=== PATIENT | female | born 1980 | race Caucasian/White ===

== ENCOUNTER 2024-03-04 12:41 | Emergency (ER) | payer MEDICAID ==
--- NOTE | 2024-03-04 12:48 | ERPHSYRPT ---
- History of Present Illness Time Seen by Provider: 03/04/24 12:48 Source: patient Exam Limitations: no limitations Physician History: This is a 43-year-old white female patient who presents to the emergency department with multiple vague complaints that began approximately 3 days ago. The complaints include headache, fatigue, malaise, body aches and has no energy and wants to sleep all day long. Patient does have a history of hypothyroidism. Patient denies chest pain. Patient denies shortness of breath. Patient denies abdominal pain. She has had no nausea vomiting or diarrhea symptoms. Patient is under a lot of stress at this time. Patient thinks her hormone levels are out of control. Patient states that she is, at times, very emotional. Patient is refusing intravenous line placement but will allow us to draw blood. Timing/Duration: day(s) (3) Quality: fullness Head Pain Location: global Severity of Pain-Max: mild Severity of Pain-Current: mild Associated Symptoms: weakness, No confusion, No dizziness, No fever/chills, No loss of consciousness, No nausea/vomiting, No neck pain, No numbness in legs/feet, No sinus infection, No stiff neck, No trouble walking, No vision changes Previous symptoms: no prior history, no recent treatment Allergies/Adverse Reactions: quetiapine [From Seroquel] Allergy (Verified 03/04/24 13:01) Home Medications: Dapagliflozin Propanediol [Farxiga] 1 ea DAILY 03/04/24 [History] Levothyroxine Sodium [Synthroid] 25 mcg PO DAILY 03/04/24 [History] Sacubitril/Valsartan [Entresto 24 mg-26 mg Tablet] 1 ea DAILY 03/04/24 [History] Travel Risk - International Travel Have you traveled outside of the country in past 3 weeks: No - Emerging Infectious Disease Are you exhibiting symptoms associated with any current EIDs: Yes Symptoms: Headaches/Body Aches/ - Review of Systems Constitutional: Malaise, Weakness Eyes: No Symptoms Ears, Nose, & Throat: No Symptoms Respiratory: No Symptoms Cardiac: No Symptoms Abdominal/Gastrointestinal: No Symptoms Genitourinary Symptoms: No Symptoms Musculoskeletal: No Symptoms Skin: No Symptoms Neurological: Headache Psychological: Emotional Lability Endocrine: No Symptoms Hematologic/Lymphatic: No Symptoms Immunological/Allergic: No Symptoms All Other Systems: Reviewed and Negative - Past Medical History Pertinent Past Medical History: Yes - Past Surgical History Past Surgical History: Yes - Nursing Vital Signs Nursing Vital Signs: Initial Vital Signs Blood Pressure 113/72 03/04/24 13:00 Pain Scale Pain Intensity 4 - Physical Exam General Appearance: no apparent distress, alert, anxiety Eye Exam: PERRL/EOMI, eyes nml inspection Ears, Nose, Throat Exam: normal ENT inspection, moist mucous membranes Neck Exam: normal inspection, non-tender, supple, full range of motion Respiratory Exam: normal breath sounds, lungs clear, airway intact, No chest tenderness, No respiratory distress Cardiovascular Exam: regular rate/rhythm, normal heart sounds, normal peripheral pulses Gastrointestinal/Abdominal Exam: soft, normal bowel sounds, No tenderness Back Exam: normal inspection, normal range of motion, No CVA tenderness, No vertebral tenderness Extremity Exam: normal inspection, normal range of motion, pelvis stable Mental Status 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: 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, 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, 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: normal hearing, normal speech, PERRL Coordination/Gait Exam: normal finger to nose, normal gait, normal cerebellar function Motor/Sensory Exam: no motor deficit, no sensory deficit Skin Exam: normal color, warm, dry Lymphatic Exam: No adenopathy SpO2 Interpretation: normal O2 Delivery: Room Air - Course Nursing assessment & vital signs reviewed: Yes EKG Interpreted by Me: RATE (53), Sinus Rhythm, NORMAL AXIS, NORMAL INTERVALS, NORMAL QRS, Other (No acute ischemia on today's twelve-lead EKG.) Ordered Tests: Active Orders 24 hr Category Date Time Status Portfolio Lead STAT Care 03/04/24 13:56 Active EKG-ER Only STAT Care 03/04/24 13:54 Active IV Insertion STAT Care 03/04/24 13:54 Active Pulse Oximetry (ED) STAT Care 03/04/24 13:54 Active BLOOD CULTURE Stat Lab 03/04/24 14:17 Received CBC W DIFF Stat Lab 03/04/24 13:54 Completed CMP Stat Lab 03/04/24 14:05 Completed HCG QUALITATIVE, SERUM Stat Lab 03/04/24 14:05 Completed MONO SCREEN Stat Lab 03/04/24 14:05 Completed TROPONIN Q4H Lab 03/04/24 14:05 Completed TROPONIN Q4H Lab 03/04/24 18:00 Ordered TROPONIN Q4H Lab 03/04/24 22:00 Ordered TSH [TSH, 3RD Generation] Stat Lab 03/04/24 14:45 Completed UA W/RFX UR CULTURE Stat Lab 03/04/24 14:04 Completed Medication Summary Discontinued Medications Generic Name Dose Route Start Last Admin Trade Name Luis PRN Reason Stop Dose Admin Sodium Chloride 1,000 mls @ 999 mls/hr 03/04/24 13:54 03/04/24 14:15 Sodium Chloride 0.9% 1000 Ml IV 03/04/24 14:54 Not Given .Q1H1M STA Ondansetron HCl 4 mg 03/04/24 13:54 03/04/24 14:16 Ondansetron Hcl 4 Mg/2 Ml Vial IV 03/04/24 13:55 Not Given STAT STA Lab/Rad Data: Laboratory Result Diagrams 03/04/24 13:54 03/04/24 14:05 Laboratory Results 03/04/24 03/04/24 03/04/24 Range/Units 14:45 14:45 14:05 WBC (3.98-10.04) x10^3/uL RBC (3.93-5.22) x10^6/uL Hgb (11.2-15.7) g/dL Hct (34.1-44.9) % MCV (79.4-94.8) fL MCH (25.6-32.2) pg MCHC (32.2-35.5) g/dL RDW (11.7-14.4) % Plt Count (182-369) x10^3/uL MPV (9.4-12.3) fL Gran % (34.0-71.1) % Immature Gran % (Auto) (0.001-0.429) % Nucleat RBC Rel Count (0.00-0.2) % Eos # (Auto) (0.04-0.36) x10^3/uL Immature Gran # (Auto) (0.001-0.031) x10^3u/L Absolute Lymphs (auto) (1.18-3.74) x10^3/uL Absolute Monos (auto) (0.24-0.86) x10^3/uL Absolute Nucleated RBC (0.00-0.012) x10^3u/L Lymphocytes % (19.3-51.7) % Monocytes % (4.7-12.5) % Eosinophils % (0.7-5.8) % Basophils % (0.1-1.2) % Absolute Granulocytes (1.56-6.13) x10^3/uL Basophils # (0.01-0.08) x10^3/uL Sodium (135-145) mmol/L Potassium (3.5-5.1) mmol/L Chloride (98-107) mmol/L Carbon Dioxide (22-30) mmol/L Anion Gap (5-15) MEQ/L BUN (7-17) mg/dL Creatinine (0.52-1.04) mg/dL Estimated GFR ML/MIN Glucose (74-106) mg/dL Calcium (8.4-10.2) mg/dL Total Bilirubin (0.2-1.3) mg/dL AST (14-36) U/L ALT (0-35) U/L Alkaline Phosphatase (38-126) U/L Troponin I (0.000-0.033) ng/mL Serum Total Protein (6.3-8.2) g/dL Albumin (3.5-5.0) g/dL Free T4 0.95 (0.78-2.19) ng/dL TSH 3rd Generation 0.706 (0.470-4.680) mIU/L Serum HCG, Qual NEGATIVE (NEGATIVE) Urine Color (Yellow) Urine Appearance (Clear) Urine pH (4.6-8.0) Ur Specific [place] (1.005-1.030) Urine Protein (Negative) Urine Glucose (UA) (Negative) mg/dL Urine Ketones (Negative) Urine Blood (Negative) Urine Nitrite (Negative) Urine Bilirubin (Negative) Urine Urobilinogen (0.2) mg/dL Ur Leukocyte Esterase (Negative) U Hyaline Cast (Auto) (0-2) /LPF Urine Microscopic RBC (0-5) /HPF Urine Microscopic WBC (0-5) /HPF Ur Epithelial Cells (None Seen) /HPF Urine Bacteria (None Seen) /HPF Urine Culture Reflexed (NO) Monoscreen (NEGATIVE) Influenza Type A Ag (NEGATIVE) Influenza Type B Ag (NEGATIVE) RSV (PCR) (NEGATIVE) SARS-CoV-2 (PCR) (NEGATIVE) 03/04/24 03/04/24 03/04/24 Range/Units 14:05 14:05 14:05 WBC (3.98-10.04) x10^3/uL RBC (3.93-5.22) x10^6/uL Hgb (11.2-15.7) g/dL Hct (34.1-44.9) % MCV (79.4-94.8) fL MCH (25.6-32.2) pg MCHC (32.2-35.5) g/dL RDW (11.7-14.4) % Plt Count (182-369) x10^3/uL MPV (9.4-12.3) fL Gran % (34.0-71.1) % Immature Gran % (Auto) (0.001-0.429) % Nucleat RBC Rel Count (0.00-0.2) % Eos # (Auto) (0.04-0.36) x10^3/uL Immature Gran # (Auto) (0.001-0.031) x10^3u/L Absolute Lymphs (auto) (1.18-3.74) x10^3/uL Absolute Monos (auto) (0.24-0.86) x10^3/uL Absolute Nucleated RBC (0.00-0.012) x10^3u/L Lymphocytes % (19.3-51.7) % Monocytes % (4.7-12.5) % Eosinophils % (0.7-5.8) % Basophils % (0.1-1.2) % Absolute Granulocytes (1.56-6.13) x10^3/uL Basophils # (0.01-0.08) x10^3/uL Sodium 138 (135-145) mmol/L Potassium 3.8 (3.5-5.1) mmol/L Chloride 108 H (98-107) mmol/L Carbon Dioxide 20 L (22-30) mmol/L Anion Gap 13.4 (5-15) MEQ/L BUN 15 (7-17) mg/dL Creatinine 0.64 (0.52-1.04) mg/dL Estimated GFR 111.7 ML/MIN Glucose 93 (74-106) mg/dL Calcium 9.3 (8.4-10.2) mg/dL Total Bilirubin 0.50 (0.2-1.3) mg/dL AST 21 (14-36) U/L ALT 15 (0-35) U/L Alkaline Phosphatase 55 (38-126) U/L Troponin I < 0.012 (0.000-0.033) ng/mL Serum Total Protein 7.6 (6.3-8.2) g/dL Albumin 4.2 (3.5-5.0) g/dL Free T4 (0.78-2.19) ng/dL TSH 3rd Generation (0.470-4.680) mIU/L Serum HCG, Qual (NEGATIVE) Urine Color (Yellow) Urine Appearance (Clear) Urine pH (4.6-8.0) Ur Specific [place] (1.005-1.030) Urine Protein (Negative) Urine Glucose (UA) (Negative) mg/dL Urine Ketones (Negative) Urine Blood (Negative) Urine Nitrite (Negative) Urine Bilirubin (Negative) Urine Urobilinogen (0.2) mg/dL Ur Leukocyte Esterase (Negative) U Hyaline Cast (Auto) (0-2) /LPF Urine Microscopic RBC (0-5) /HPF Urine Microscopic WBC (0-5) /HPF Ur Epithelial Cells (None Seen) /HPF Urine Bacteria (None Seen) /HPF Urine Culture Reflexed (NO) Monoscreen WEAKLY POSITIVE A (NEGATIVE) Influenza Type A Ag (NEGATIVE) Influenza Type B Ag (NEGATIVE) RSV (PCR) (NEGATIVE) SARS-CoV-2 (PCR) (NEGATIVE) 03/04/24 03/04/24 03/04/24 Range/Units 14:04 14:04 13:54 WBC 8.4 (3.98-10.04) x10^3/uL RBC 4.81 (3.93-5.22) x10^6/uL Hgb 12.7 (11.2-15.7) g/dL Hct 39.9 (34.1-44.9) % MCV 83.0 (79.4-94.8) fL MCH 26.4 (25.6-32.2) pg MCHC 31.8 L (32.2-35.5) g/dL RDW 14.8 H (11.7-14.4) % Plt Count 258 (182-369) x10^3/uL MPV 10.2 (9.4-12.3) fL Gran % 55.4 (34.0-71.1) % Immature Gran % (Auto) 0.2 (0.001-0.429) % Nucleat RBC Rel Count 0.0 (0.00-0.2) % Eos # (Auto) 0.24 (0.04-0.36) x10^3/uL Immature Gran # (Auto) 0.02 (0.001-0.031) x10^3u/L Absolute Lymphs (auto) 2.72 (1.18-3.74) x10^3/uL Absolute Monos (auto) 0.71 (0.24-0.86) x10^3/uL Absolute Nucleated RBC 0.00 (0.00-0.012) x10^3u/L Lymphocytes % 32.5 (19.3-51.7) % Monocytes % 8.5 (4.7-12.5) % Eosinophils % 2.9 (0.7-5.8) % Basophils % 0.5 (0.1-1.2) % Absolute Granulocytes 4.64 (1.56-6.13) x10^3/uL Basophils # 0.04 (0.01-0.08) x10^3/uL Sodium (135-145) mmol/L Potassium (3.5-5.1) mmol/L Chloride (98-107) mmol/L Carbon Dioxide (22-30) mmol/L Anion Gap (5-15) MEQ/L BUN (7-17) mg/dL Creatinine (0.52-1.04) mg/dL Estimated GFR ML/MIN Glucose (74-106) mg/dL Calcium (8.4-10.2) mg/dL Total Bilirubin (0.2-1.3) mg/dL AST (14-36) U/L ALT (0-35) U/L Alkaline Phosphatase (38-126) U/L Troponin I (0.000-0.033) ng/mL Serum Total Protein (6.3-8.2) g/dL Albumin (3.5-5.0) g/dL Free T4 (0.78-2.19) ng/dL TSH 3rd Generation (0.470-4.680) mIU/L Serum HCG, Qual (NEGATIVE) Urine Color Yellow (Yellow) Urine Appearance Clear (Clear) Urine pH 5.5 (4.6-8.0) Ur Specific [place] >=1.030 A (1.005-1.030) Urine Protein Negative (Negative) Urine Glucose (UA) >=1000 A (Negative) mg/dL Urine Ketones Negative (Negative) Urine Blood Negative (Negative) Urine Nitrite Negative (Negative) Urine Bilirubin Negative (Negative) Urine Urobilinogen 0.2 (0.2) mg/dL Ur Leukocyte Esterase Negative (Negative) U Hyaline Cast (Auto) NONE SEEN (0-2) /LPF Urine Microscopic RBC 0-2 (0-5) /HPF Urine Microscopic WBC 3-5 (0-5) /HPF Ur Epithelial Cells Few (None Seen) /HPF Urine Bacteria None Seen (None Seen) /HPF Urine Culture Reflexed NO (NO) Monoscreen (NEGATIVE) Influenza Type A Ag NEGATIVE (NEGATIVE) Influenza Type B Ag NEGATIVE (NEGATIVE) RSV (PCR) NEGATIVE (NEGATIVE) SARS-CoV-2 (PCR) NEGATIVE (NEGATIVE) - Progress Progress: improved, re-examined Air Movement: good Progress Note: 03/04/24 14:41 My medical decision making and the assignment of moderate complexity to this patient's medical issue today is based on review of the patient's past medical history, review of the patient's medication list, review patient drug allergy list, history present illness and physical findings on examination. The workup in this patient included placement of intravenous line (patient refused) CBC, CMP, twelve-lead EKG, troponin level, urinalysis, viral swabs, monotest, free T4 and TSH levels. Differential diagnosis includes but is not limited to dehydration, urinary tract infection, viral illness, abnormal thyroid function test levels, anemia, arrhythmia 03/04/24 16:07 I interpreted the patient's laboratory data results. The patient has tested positive for mononucleosis. Patient also has glucosuria. The patient refused an intravenous line and therefore we could not provide her with any normal saline solution which was the plan initially. Counseled pt/family regarding: lab results, diagnosis, need for follow-up Medical Desision Making - Diagnostic Testing Diagnostic test were ordered, analyzed, and reviewed by me: Yes - Risk of complications Low Risk: Low risk of morbidity from additional dx testing or treatment - Departure Departure Disposition: Home Clinical Impression: Mononucleosis, Glucosuria Condition: Stable Critical Care Time: No Referrals: DOCTOR,NO FAMILY [Primary Care Provider] - Follow up/PCP as directed Additional Instructions: Drink plenty of clear liquids before advancing your diet. Avoid fatty greasy spicy foods. Call your primary care provider tomorrow, 03/05/2024, to make arranges for follow-up appointment for further evaluation management. If there are no contraindications, use Tylenol and ibuprofen for pain and fever control.
[2024-03-04 13:07] VITALS: RESP 18; TEMP 97.2
[2024-03-04 14:05] VITALS: O2SAT 98
[2024-03-04] MEDS: Sodium Chloride 0.9% 1000 ML 1,000 ML IV STA (14:15)
[2024-03-04] MEDS: Zofran 4 MG/2 ML VIAL IV STA (14:16)
[2024-03-04 14:20] LABS: Appearance Clear (Clear); Bacteria None Seen /HPF (None Seen); Bilirubin Negative (Negative); Blood Negative (Negative); Epithelial Cells Few /HPF (None Seen); Glucose, Urine >=1000 mg/dL (Negative); Hyaline Casts NONE SEEN /LPF (0-2); Ketones Negative (Negative); Leukocyte Esterase Negative (Negative); Nitrite Negative (Negative); Ph 5.5 (4.6-8.0); Protein,Urine Dip Negative (Negative); RBC 0-2 /HPF (0-5); Specific Gravity >=1.030 (1.005-1.030); Urobilinogen 0.2 mg/dL (0.2)
[2024-03-04 14:22] LABS: Absolute Neutrophil Ct (ANC) 4.64 x10^3/uL (1.56-6.13); BASOPHIL % 0.5 % (0.1-1.2); Basophil (Absolute #) 0.04 x10^3/uL (0.01-0.08); Eosinophil % 2.9 % (0.7-5.8); Eosinophil (Absolute #) 0.24 x10^3/uL (0.04-0.36); Hematocrit 39.9 % (34.1-44.9); Hemoglobin 12.7 g/dL (11.2-15.7); IMMATURE GRAN # 0.02 x10^3u/L (0.001-0.031); IMMATURE GRAN % 0.2 % (0.001-0.429); Lymphocyte (Absolute #) 2.72 x10^3/uL (1.18-3.74); Lymphocytes % 32.5 % (19.3-51.7); Mean Corpuscular Hemoglobin 26.4 pg (25.6-32.2); Mean Corpuscular Hgb Concent. 31.8 g/dL (32.2-35.5); Mean Platelet Volume 10.2 fL (9.4-12.3); Monocyte (Absolute #) 0.71 x10^3/uL (0.24-0.86); Monocytes % 8.5 % (4.7-12.5); Neutrophil % 55.4 % (34.0-71.1); Platelet Count 258 x10^3/uL (182-369); Red Blood Count 4.81 x10^6/uL (3.93-5.22); Red Cell Distribution Width 14.8 % (11.7-14.4); White Blood Count 8.4 x10^3/uL (3.98-10.04)
[2024-03-04 14:40] LABS: ADD URINE CULTURE? NO (NO)
[2024-03-04 14:41] LABS: HCG SERUM TEST NEGATIVE (NEGATIVE)
[2024-03-04 14:45] LABS: ALBUMIN 4.2 g/dL (3.5-5.0); ANION GAP 13.4 MEQ/L (5-15); BILIRUBIN,TOTAL 0.5 mg/dL (0.2-1.3); Calcium 9.3 mg/dL (8.4-10.2); Creatinine 1 0.64 mg/dL (0.52-1.04); EST GLOMERULAR FILTRATION RATE 111.7 ML/MIN; Potassium 3.8 mmol/L (3.5-5.1); Total Protein 7.6 g/dL (6.3-8.2)
[2024-03-04 15:01] LABS: INFLUENZA A NEGATIVE (NEGATIVE); INFLUENZA B NEGATIVE (NEGATIVE); RESPIRATORY SYNCTIAL VIRUS NEGATIVE (NEGATIVE); SARS-CoV-2 Xpert Express NEGATIVE (NEGATIVE)
[2024-03-04 16:11] VITALS: BP 86/54; PULSE 78
== END 2024-03-04 16:21 | disposition home or self-care (01) ==
LOC: ED 12:41
DX: B27.90 Infectious mononucleosis, unspecified without complication (principal); R81 Glycosuria; R51.9 Headache, unspecified; R53.83 Other fatigue; M79.10 Myalgia, unspecified site; Z79.84 Long term (current) use of oral hypoglycemic drugs; Z79.899 Other long term (current) drug therapy
CPT/HCPCS: 0241U; 36415; 80053; 81001; 84439; 84443; 84484; 84703; 85025; 86308; 87040; 93005; 93041; 94760; 99284

== ENCOUNTER 2024-09-13 20:25 | Emergency (ER) | payer MEDICAID, OTHER ==
[2024-09-13] MEDS ORDERED: GlucaGen 1 MG IM ONE (20:26)
[2024-09-13 21:02] LABS: BASOPHIL % 0.8 % (0.1-1.2); Basophil (Absolute #) 0.07 x10^3/uL (0.01-0.08); Eosinophil % 2.7 % (0.7-5.8); Eosinophil (Absolute #) 0.25 x10^3/uL (0.04-0.36); Hemoglobin 13.1 g/dL (11.2-15.7); IMMATURE GRAN # 0.02 x10^3u/L (0.001-0.031); IMMATURE GRAN % 0.2 % (0.001-0.429); Lymphocyte (Absolute #) 3.08 x10^3/uL (1.18-3.74); Lymphocytes % 33.1 % (19.3-51.7); Mean Cell Volume 79.1 fL (79.4-94.8); Mean Corpuscular Hemoglobin 25.9 pg (25.6-32.2); Mean Corpuscular Hgb Concent. 32.8 g/dL (32.2-35.5); Mean Platelet Volume 9.4 fL (9.4-12.3); Monocyte (Absolute #) 0.89 x10^3/uL (0.24-0.86); Monocytes % 9.6 % (4.7-12.5); Neutrophil % 53.6 % (34.0-71.1); Platelet Count 367 x10^3/uL (182-369); Red Blood Count 5.06 x10^6/uL (3.93-5.22); Red Cell Distribution Width 14.7 % (11.7-14.4); White Blood Count 9.3 x10^3/uL (3.98-10.04)
[2024-09-13 21:03] VITALS: TEMP 97
[2024-09-13] MEDS ORDERED: Sodium Chloride 0.9% 1000 ML 0 ML ONE (21:03)
[2024-09-13] MEDS: Sodium Chloride 0.9% 1000 ML 1,000 ML IV STA ×2 (21:04→23:03)
--- NOTE | 2024-09-13 21:14 | ERPHSYRPT ---
- History of Present Illness Time Seen by Provider: 09/13/24 20:48 Source: patient Exam Limitations: no limitations Physician History: 44-year-old female with history of substance abuse, heart failure with pacemaker implant, hypothyroidism presented in the ER after she overdosed on 3.125 mg Coreg x 100 and Entresto x 40 around 5:30 PM almost 3 hours prior to arrival. Patient reports worsening of depressive symptoms and does have history of overdose in the past as well with cardiac arrest. Denies any alcohol or substance abuse. No chest pain palpitations or shortness of breath. Denies feeling dizzy or lightheaded. Allergies/Adverse Reactions: quetiapine [From Seroquel] Allergy (Verified 09/13/24 20:45) Home Medications: Dapagliflozin Propanediol [Farxiga] 1 ea DAILY 03/04/24 [History] Levothyroxine Sodium [Synthroid] 25 mcg PO DAILY 03/04/24 [History] Sacubitril/Valsartan [Entresto 24 mg-26 mg Tablet] 1 ea DAILY 03/04/24 [History] Hx Tetanus, Diphtheria Vaccination/Date Given: No Hx Influenza Vaccination/Date Given: No Hx Pneumococcal Vaccination/Date Given: No Travel Risk - Emerging Infectious Disease Are you exhibiting symptoms associated with any current EIDs: Yes Symptoms: Headaches/Body Aches/ - Past Medical History Pertinent Past Medical History: Yes Cardiac History: Coronary Artery Disease, Hypertension, Myocardial Infarction ([place]) - Past Surgical History Past Surgical History: Yes Cardiac: Cardiac Catheterization, Internal Defibrillator, Pacemaker Gastrointestinal: Cholecystectomy Female Surgical History: Other Other Surgical History: abnormal pap smears - Female History Hx Last Menstrual Period: late Hx Now: (unkn) - Social History Smoking Status: Current every day smoker Exposure to second hand smoke: Yes Drug Use: none - Social Determinants of Health Will the patient participate in the screening: Yes Do you worry about a steady place to live?: No In the past 12 months,have you had to go without utilities?: No Transportation Issues: Yes Has anyone in your support network made you feel unsafe?: No Have you or anyone in your house had to go without enough: No Comment: lost drivers lic - Review of Systems Constitutional: Fatigue Eyes: No Symptoms Ears, Nose, & Throat: No Symptoms Respiratory: No Symptoms Cardiac: No Symptoms Abdominal/Gastrointestinal: No Symptoms Genitourinary Symptoms: No Symptoms Musculoskeletal: Arthralgias Skin: No Symptoms Neurological: No Symptoms Psychological: Anxiety, Depression, Suicidal Ideations Endocrine: No Symptoms Hematologic/Lymphatic: No Symptoms - Nursing Vital Signs Nursing Vital Signs: Initial Vital Signs Temperature 97.0 F 09/13/24 20:49 Pulse Rate 65 09/13/24 20:49 Respiratory Rate 18 09/13/24 20:49 Blood Pressure 91/59 09/13/24 20:49 O2 Sat by Pulse Oximetry 95 09/13/24 20:49 Pain Scale Pain Intensity 0 - Physical Exam General Appearance: no apparent distress, alert Eyes, Ears, Nose, Throat Exam: normal ENT inspection Neck Exam: normal inspection, supple, full range of motion Respiratory Exam: normal breath sounds, lungs clear Cardiovascular Exam: regular rate/rhythm, normal heart sounds Gastrointestinal/Abdominal Exam: soft, normal bowel sounds, No tenderness Extremities Exam: normal inspection Current Suicidality: has suicide plan Neurological Exam: alert, calm, serology teacher II-XII nml as tested, 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, No normal mood/affect Appearance: appropriate appearance, appropriate insight, neat, no memory impairment Behavior/Eye Contact/Speech: alert & cooperative, cooperative, good eye contact, normal speech Thoughts/Hallucinations: normal thought pattern, no apparent hallucination Skin Exam: normal color SpO2 Interpretation: normal SpO2: 95 O2 Delivery: Room Air - Course EKG Interpreted by Me: RATE ([id number]), Sinus Rhythm, NORMAL AXIS, NORMAL INTERVALS, NORMAL QRS Ordered Tests: Active Orders 24 hr Category Date Time Status Vessel Crew Member STAT Care 09/13/24 20:50 Active EKG-ER Only STAT Care 09/13/24 20:48 Active IV Insertion STAT Care 09/13/24 20:48 Active CHEST 1 VIEW (PORTABLE) Stat Exams 09/13/24 20:49 Taken ACETAMINOPHEN Stat Lab 09/13/24 20:59 Completed CBC W DIFF Stat Lab 09/13/24 20:59 Completed CK-Creatinine Phosphokinase Stat Lab 09/13/24 20:59 Completed CMP Stat Lab 09/13/24 20:59 Completed ETHYL ALCOHOL Stat Lab 09/13/24 20:59 Completed HCG QUALITATIVE, SERUM Stat Lab 09/13/24 20:59 Completed NT PRO BNPII Stat Lab 09/13/24 20:59 Completed PROTIME WITH INR Stat Lab 09/13/24 20:59 Completed PTT Stat Lab 09/13/24 20:59 Completed SALICYLATE Stat Lab 09/13/24 20:59 Completed TROPONIN Q4H Lab 09/13/24 20:59 Completed TROPONIN Q4H Lab 09/14/24 01:00 Ordered TROPONIN Q4H Lab 09/14/24 05:00 Ordered Urine Triage Profile Stat Lab 09/13/24 21:07 Completed Medication Summary Generic Name Dose Route Start Last Admin Trade Name Freq PRN Reason Stop Dose Admin Sodium Chloride 1,000 mls @ 999 mls/hr 09/13/24 22:58 09/13/24 23:03 Sodium Chloride 0.9% 1000 Ml IV 09/13/24 23:58 999 mls/hr .Q1H1M STA Administration Discontinued Medications Generic Name Dose Route Start Last Admin Trade Name Freq PRN Reason Stop Dose Admin Glucagon 5 mg 09/13/24 22:50 09/13/24 23:11 Glucagon 1 Mg/Vial Vial IV 09/13/24 22:51 5 mg STAT ONE Administration Glucagon Confirm 09/13/24 23:00 Glucagon 1 Mg/Vial Vial Administered 09/13/24 23:01 Dose 2 mg .ROUTE .STK-MED ONE Sodium Chloride 1,000 mls @ 999 mls/hr 09/13/24 20:48 09/13/24 21:04 Sodium Chloride 0.9% 1000 Ml IV 09/13/24 21:48 999 mls/hr .Q1H1M STA Administration Sodium Chloride Confirm 09/13/24 21:03 Sodium Chloride 0.9% 1000 Ml Administered 09/13/24 21:04 Dose 1,000 mls @ ud .ROUTE .STK-MED ONE Sodium Chloride Confirm 09/13/24 22:37 Sodium Chloride 0.9% 1000 Ml Administered 09/13/24 22:38 Dose 1,000 mls @ ud .ROUTE .STK-MED ONE Sodium Chloride Confirm 09/13/24 23:02 Sodium Chloride 0.9% 1000 Ml Administered 09/13/24 23:03 Dose 1,000 mls @ ud .ROUTE .STK-MED ONE Metoclopramide HCl 10 mg 09/13/24 23:22 09/13/24 23:27 Metoclopramide Hcl 10 Mg/2 Ml Vial IV 09/13/24 23:23 10 mg STAT ONE Administration Metoclopramide HCl Confirm 09/13/24 23:26 Metoclopramide Hcl 10 Mg/2 Ml Vial Administered 09/13/24 23:27 Dose 10 mg .ROUTE .K-MED ONE Lab/Rad Data: Laboratory Result Diagrams 09/13/24 20:59 09/13/24 20:59 Laboratory Results 09/13/24 09/13/24 09/13/24 Range/Units 21:07 20:59 20:59 WBC (3.98-10.04) x10^3/uL RBC (3.93-5.22) x10^6/uL Hgb (11.2-15.7) g/dL Hct (34.1-44.9) % MCV (79.4-94.8) fL MCH (25.6-32.2) pg MCHC (32.2-35.5) g/dL RDW (11.7-14.4) % Plt Count (182-369) x10^3/uL MPV (9.4-12.3) fL Gran % (34.0-71.1) % Immature Gran % (Auto) (0.001-0.429) % Nucleat RBC Rel Count (0.00-0.2) % Eos # (Auto) (0.04-0.36) x10^3/uL Immature Gran # (Auto) (0.001-0.031) x10^3u/L Absolute Lymphs (auto) (1.18-3.74) x10^3/uL Absolute Monos (auto) (0.24-0.86) x10^3/uL Absolute Nucleated RBC (0.00-0.012) x10^3u/L Lymphocytes % (19.3-51.7) % Monocytes % (4.7-12.5) % Eosinophils % (0.7-5.8) % Basophils % (0.1-1.2) % Absolute Granulocytes (1.56-6.13) x10^3/uL Basophils # (0.01-0.08) x10^3/uL PT (9.4-12.5) SECONDS INR (0.8-3.0) APTT (25.1-36.5) SECONDS Sodium (135-145) mmol/L Potassium (3.5-5.1) mmol/L Chloride (98-107) mmol/L Carbon Dioxide (22-30) mmol/L Anion Gap (5-15) MEQ/L BUN (7-17) mg/dL Creatinine (0.52-1.04) mg/dL Estimated GFR ML/MIN Glucose (74-106) mg/dL Calcium (8.4-10.2) mg/dL Total Bilirubin (0.2-1.3) mg/dL AST (14-36) U/L ALT (0-35) U/L Alkaline Phosphatase (38-126) U/L Creatine Kinase (30-135) U/L Troponin I < 0.012 (0.000-0.033) ng/mL NT-Pro-B Natriuret Pep 35.8 (<300) pg/mL Serum Total Protein (6.3-8.2) g/dL Albumin (3.5-5.0) g/dL Serum HCG, Qual NEGATIVE (NEGATIVE) Salicylates (2-20) mg/dL Urine Opiates Level NEGATIVE (NEGATIVE) Ur Methadone NEGATIVE (NEGATIVE) Acetaminophen (10-30) ug/ml Urine Barbiturates NEGATIVE (NEGATIVE) Ur Phencyclidine (PCP) NEGATIVE (NEGATIVE) Urine Amphetamine NEGATIVE (NEGATIVE) U Benzodiazepine Level NEGATIVE (NEGATIVE) Urine Cocaine NEGATIVE (NEGATIVE) Urine Marijuana (THC) NEGATIVE (NEGATIVE) Ethyl Alcohol (0-10) mg/dL 09/13/24 09/13/24 09/13/24 Range/Units 20:59 20:59 20:59 WBC 9.3 (3.98-10.04) x10^3/uL RBC 5.06 (3.93-5.22) x10^6/uL Hgb 13.1 (11.2-15.7) g/dL Hct 40.0 (34.1-44.9) % MCV 79.1 L (79.4-94.8) fL MCH 25.9 (25.6-32.2) pg MCHC 32.8 (32.2-35.5) g/dL RDW 14.7 H (11.7-14.4) % Plt Count 367 (182-369) x10^3/uL MPV 9.4 (9.4-12.3) fL Gran % 53.6 (34.0-71.1) % Immature Gran % (Auto) 0.2 (0.001-0.429) % Nucleat RBC Rel Count 0.0 (0.00-0.2) % Eos # (Auto) 0.25 (0.04-0.36) x10^3/uL Immature Gran # (Auto) 0.02 (0.001-0.031) x10^3u/L Absolute Lymphs (auto) 3.08 (1.18-3.74) x10^3/uL Absolute Monos (auto) 0.89 H (0.24-0.86) x10^3/uL Absolute Nucleated RBC 0.00 (0.00-0.012) x10^3u/L Lymphocytes % 33.1 (19.3-51.7) % Monocytes % 9.6 (4.7-12.5) % Eosinophils % 2.7 (0.7-5.8) % Basophils % 0.8 (0.1-1.2) % Absolute Granulocytes 5.00 (1.56-6.13) x10^3/uL Basophils # 0.07 (0.01-0.08) x10^3/uL PT 10.2 (9.4-12.5) SECONDS INR 0.93 (0.8-3.0) APTT 26.8 (25.1-36.5) SECONDS Sodium 136 (135-145) mmol/L Potassium 4.0 (3.5-5.1) mmol/L Chloride 100 (98-107) mmol/L Carbon Dioxide 24 (22-30) mmol/L Anion Gap 15.9 H (5-15) MEQ/L BUN 17 (7-17) mg/dL Creatinine 0.91 (0.52-1.04) mg/dL Estimated GFR 79.3 ML/MIN Glucose 118 H (74-106) mg/dL Calcium 10.4 H (8.4-10.2) mg/dL Total Bilirubin 0.30 (0.2-1.3) mg/dL AST 29 (14-36) U/L ALT 19 (0-35) U/L Alkaline Phosphatase 64 (38-126) U/L Creatine Kinase 102 (30-135) U/L Troponin I (0.000-0.033) ng/mL NT-Pro-B Natriuret Pep (<300) pg/mL Serum Total Protein 8.2 (6.3-8.2) g/dL Albumin 4.8 (3.5-5.0) g/dL Serum HCG, Qual (NEGATIVE) Salicylates < 1.0 L (2-20) mg/dL Urine Opiates Level (NEGATIVE) Ur Methadone (NEGATIVE) Acetaminophen < 10 L (10-30) ug/ml Urine Barbiturates (NEGATIVE) Ur Phencyclidine (PCP) (NEGATIVE) Urine Amphetamine (NEGATIVE) U Benzodiazepine Level (NEGATIVE) Urine Cocaine (NEGATIVE) Urine Marijuana (THC) (NEGATIVE) Ethyl Alcohol < 10 (0-10) mg/dL - Progress Progress: unchanged, re-examined Progress Note: 09/13/24 22:54 44-year-old is evaluated in the ER for Coreg and Entresto overdose at around 5:30 PM. Patient is hemodynamically stable on presentation, EKG is sinus rhythm with no acute ST elevations and heart rate in 60s. She is given fluid bolus, blood pressure is around 86-1 09 systolic. Patient is ambulating in the ER without any assistance. No bradycardia episodes. Workup showed normal white count, chemistries fairly unremarkable and negative troponins. Urine drug screen is negative and also negative alcohol and acetaminophen/salicylate levels. Chest x-ray is negative for any acute cardiopulmonary findings reviewed by me, official report is pending. Poison control is called, recommended supportive care and if has worsening hemodynamically, patient can be started on vasopressin and insulin bolus. I have discussed with Dr. Carballo, hospitalist, reviewed history, workup and poison control recommendations, recommended transfer to facility with cardiology services/elevator attendant. I have called [facility] transfer center and have discussed with Dr. Jesus Clements in the ER, reviewed history, workup and recommended giving 5 mg IV glucagon which is ordered. I have shared the results of workup with patient, recommendations of hospitalist here and 1 from [facility] and patient is okay with transfer. 09/13/24 23:44 Patient blood pressure dropped in low 80s and 70s, started on Levophed. She also had a couple of episodes of nonprojectile, nonbilious vomiting after glucagon and given Reglan, feeling better now. Heart rate is still in 70s. Discussed with Dr.: Other (Dr. Carballo hospitalist, Dr. Jesus Myles [facility] ER) Counseled pt/family regarding: lab results, diagnosis, need for follow-up, rad results Medical Desision Making - Discussion of managment Care discussed with:: on-call "doc" Reviewed:: Test results Agreed on:: Treatment plan Will see patient: in ED - Diagnostic Testing Diagnostic test were ordered, analyzed, and reviewed by me: Yes Radiological Interpretation: Interpreted by me, Reviewed by me - Risk of complications The pt has a mod risk of morbidity or mortality based on: Need for prescription drug management The pt has a high risk of morbidity or mortality based on: Decision regarding ho spitilization or escalation of hosp level of care - Departure Departure Disposition: Transfer Clinical Impression: Drug overdose, intentional Condition: Stable Critical Care Time: Yes Critical Care Time(excluding separately billable procedures): Critical 75-104 mins Referrals: DOCTOR,NO FAMILY [Primary Care Provider] - Follow up/PCP as directed
[2024-09-13 21:16] LABS: ACETAMINOPHEN < 10 ug/ml (10-30); ALBUMIN 4.8 g/dL (3.5-5.0); ALKALINE PHOSPHATASE 64 U/L (38-126); ANION GAP 15.9 MEQ/L (5-15); BLOOD UREA NITROGEN 17 mg/dL (7-17); CHLORIDE 100 mmol/L (98-107); CK-Creatinine Phosphokinase 102 U/L (30-135); Calcium 10.4 mg/dL (8.4-10.2); Carbon Dioxide 24 mmol/L (22-30); Creatinine 1 0.91 mg/dL (0.52-1.04); EST GLOMERULAR FILTRATION RATE 79.3 ML/MIN; ETHYL ALCOHOL < 10 mg/dL (0-10); Glucose 118 mg/dL (74-106); HCG SERUM TEST NEGATIVE (NEGATIVE); SALICYLATE < 1.0 mg/dL (2-20); SGOT/AST 29 U/L (14-36); SGPT/ALT 19 U/L (0-35); SODIUM 136 mmol/L (135-145); Total Protein 8.2 g/dL (6.3-8.2)
[2024-09-13 21:19] LABS: INR 0.93 (0.8-3.0); PROTIME 10.2 SECONDS (9.4-12.5); PTT 26.8 SECONDS (25.1-36.5)
[2024-09-13 21:27] LABS: NT PRO BNPII 35.8 pg/mL (<300); TROPONIN < 0.012 ng/mL (0.000-0.033)
[2024-09-13 22:15] LABS: Amphetamine,Urine NEGATIVE (NEGATIVE); Barbiturate,Urine NEGATIVE (NEGATIVE); Benzodiazepine,Urine NEGATIVE (NEGATIVE); Cocaine,Urine NEGATIVE (NEGATIVE); Methadone,Urine NEGATIVE (NEGATIVE); Opiate,Urine NEGATIVE (NEGATIVE); PCP,Urine NEGATIVE (NEGATIVE); THC,Urine NEGATIVE (NEGATIVE)
[2024-09-13] MEDS ORDERED: Sodium Chloride 0.9% 1000 ML 1,000 ML ONE ×2 (22:37→23:02)
[2024-09-13] MEDS ORDERED: GlucaGen 1 MG ONE (23:00)
[2024-09-13] MEDS: GlucaGen 1 MG IV ONE (23:11)
[2024-09-13] MEDS ORDERED: Reglan 10 MG/2 ML ONE (23:26)
[2024-09-13] MEDS: Reglan 10 MG/2 ML IV ONE (23:27)
[2024-09-13] MEDS ORDERED: NOREPINEPHRINE 8 MG/250 ML-D5W 8 MG/250 ML PLAST..BAG IV ONE (23:44)
[2024-09-13 23:45] VITALS: O2SAT 95
[2024-09-13] MEDS: NOREPINEPHRINE 8 MG/250 ML-D5W 8 MG/250 ML PLAST..BAG IV PRN (23:51)
[2024-09-13 23:53] VITALS: BP 78/45; PULSE 72; RESP 16
--- NOTE | 2024-09-14 08:20 | XRAY ---
Indication: Overdose. Comparison: None Portable chest demonstrates normal heart, lungs, and bony thorax with incidental left AICD.
== END 2024-09-13 23:55 | disposition short-term general hospital (02) ==
LOC: ED 20:25
DX: T44.7X2A Poisoning by beta-adrenoreceptor antagonists, intentional self-harm, initial encounter (principal); T46.5X2A Poisoning by other antihypertensive drugs, intentional self-harm, initial encounter; T50.992A Poisoning by other drugs, medicaments and biological substances, intentional self-harm, initial encounter; I95.2 Hypotension due to drugs; I11.0 Hypertensive heart disease with heart failure; I50.9 Heart failure, unspecified; Z79.84 Long term (current) use of oral hypoglycemic drugs; Z79.899 Other long term (current) drug therapy; Z72.0 Tobacco use; Z59.82 Transportation insecurity
CPT/HCPCS: 36415; 71045; 80053; 80143; 80179; 80307; 82077; 82550; 83880; 84484; 84703; 85025; 85610; 85730; 93005; 93041; 96360; 96361; 96365; 96366; 96374; 96375; 96376; 99284; 99291; 99292; J1610